=== PATIENT | female | born 1985 | race Caucasian/White ===

== ENCOUNTER 2017-03-06 21:26 | Emergency (ER) | payer OTHER ==
[~2017-03-06 21:26] MED LIST: HYDROCHLOROTHIA25 MG PO; LAMICTAL100 MG PO; LEVSIN/SL0.125 MG PO; LEXAPRO20 MG PO; ONDANSETRON ODT4 MG PO; PRILOSEC20 MG PO; VENTOLIN HFA IN
--- NOTE | 2017-03-06 23:49 | ED NURSING NOTES ---
Clinical Report - Nurses [facility] [address] [place] [address] 03/06/2017 21:27 [id number] Triage time 21:45 Aditya 04 2016. Acuity: LEVEL 3. Chief Complaint: ALLERGIC REACTION. Alert. CAYDEN COMA SCORE: Cayden Coma Scale: 15- eyes open spontaneously (4); best verbal response- oriented x 4 (5); best motor response- obeys commands (6). --22:11 Andrey Rivera R.N. 22:02 03/06/17. BP: 110/74. HR: 127. RR: 28. O2 saturation: 99%. Temp: 98 F. Pain level now: 0/10. --22:11 Andrey Rivera R.N. Weight: 124.9 kg measured. Height/Length: 65 inches Per Patient. BMI: 45.9. --22:05 Andrey Rivera R.N. Medications LamoTRIgine ER Oral. --22:08 Andrey Rivera R.N. Levothyroxine Sodium Oral 150 mcg, daily. --22:08 Andrey Rivera R.N. Mehtadone. --22:08 Andrey Rivera R.N. Ibuprofen Oral. --22:11 Andrey Rivera R.N. Sertraline HCl Oral 150 mg, daily. --22:24 Andrey Rivera R.N. Medication/allergy information source: the patient. --22:11 Andrey Rivera R.N. Allergies Ceclor. --22:09 Andrey Rivera R.N. Compazine. --22:09 Andrey Rivera R.N. Sulfa Antibiotics. --22:10 Andrey Rivera R.N. History Arrived by private vehicle. Historian: patient. Accompanied by family. Primary physician (Kayla). 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 This started just prior to arrival. She has had itching and difficulty breathing. Treatment COLLIERY CLERK: (Benadryl 25 mg x 2 and Epi pens x 2). PAST MEDICAL HX: Asthma. SOCIAL HX: Light tobacco smoker (cigarette)- less than 1/2 a pack per day. No alcohol use or drug use. No infectious disease exposure. ABUSE ASSESSMENT: No report of abuse. FALL RISK ASSESSMENT: Fall risk assessment completed. No fall risk identified. NUTRITIONAL RISK ASSESSMENT: The nutritional risk assessment revealed no deficiencies. FUNCTIONAL ASSESSMENT: Functional assessment: no impairments noted. LEARNING NEEDS ASSESSMENT: The learning needs assessment revealed no barriers. SKIN INTEGRITY ASSESSMENT: Skin integrity risk assessment completed. No skin integrity risk identified. --22:11 Andrey Rivera R.N. Interventions ID band on patient. To treatment room. --22:11 Andrey Rivera R.N. PHYSICAL ASSESSMENT Ambulatory to room. GENERAL / NEURO / PSYCH: Alert. Appears anxious. Oriented X 4. HEENT: Pupils equal, round and reactive to light. Mucous membranes are pink. RESPIRATORY: Decreased breath sounds in the right upper lung posteriorly; decreased breath sounds in the left upper lung posteriorly. CVS: Cardiac rhythm: sinus tachycardia. SKIN: Skin is intact, warm and dry. --22:12 Andrey Rivera R.N. NURSING PROGRESS NOTES Patient gowned. Reassurance given. Patient identifiers checked. Call light placed in reach. Side rails up x 2. Bed placed in lowest position. Brakes of bed on. Patient ready for evaluation- chart flagged and ED physician notified. --22:13 Andrey Rivera R.N. 21:39 03/06/2017 Zofran (Ondansetron HCl) IVP 4 mg given over 2 minute(s) via site #1. Allergies verified and confirmed 5 rights. IV patency established. IV site checked: no pain, redness, or swelling. IV flushed thoroughly pre- and post-medication administration. IVP given by RN. --22:23 Andrey Rivera R.N. 21:48 03/06/2017 Prednisone PO Tablets 40 mg given. Allergies verified and confirmed 5 rights. --22:13 Andrey Rivera R.N. 21:58 03/06/2017 Site #1 started via IV in the left antecubital space with an 20g angiocath, with aseptic technique and good blood return; one attempt. Blood drawn: rainbow set. Labeled in the presence of the patient and sent to the lab. Saline lock flushed with 10 mL saline. --22:23 Andrey Rivera R.N. 22:22 03/06/2017 Famotidine PO Tablets 20 mg given. Allergies verified and confirmed 5 rights. --22:22 Andrey Rivera R.N. 22:29 03/06/17. BP: 131/102. HR: 125. RR: 18. O2 saturation: 100%. Pain level now: 0/10. --22:30 Andrey Rivera R.N. 23:17 03/06/17. BP: 112/64. HR: 117. RR: 31. O2 saturation: 100%. --23:18 Yesica Roberson R.N. The patient is calm and resting quietly. Overall patient status is improved- she states feels better. RESPIRATORY: No respiratory distress. SKIN: Skin is warm and dry. Skin color within normal limits. --23:18 Yesica Roberson R.N. 23:50 03/06/2017 Site #1 removed upon discharge. Catheter intact. Bandaid applied. --01:55 Andrey Rivera R.N. DISPOSITION / DISCHARGE Departure time: 2355. --01:56 Andrey Rivera R.N. 23:53 03/06/17. BP: 127/64. HR: 113. RR: 20 (regular). O2 saturation: 99% on room air. Temp: 98.4 F (oral). Pain level now: 110. Additional comments: Itchiness. --01:59 Andrey Rivera R.N. 23:55. Condition at departure: improved. No learning barriers present. Discharge instructions provided and reviewed with the patient and parent. Reviewed medication(s) (prescription given to pt). Reviewed referral to family practice for followup (in about 2 days). Patient verbalized understanding. Written instructions provided in Bhutanese. The patient was discharged by the physician. She was discharged home and accompanied by parent. She left the Emergency Department ambulatory and via private vehicle. Parent driving. FALL RISK ASSESSMENT: Fall risk assessment completed. No fall risk identified. --02:03 Andrey Rivera R.N. Locked/Released at 03/07/2017 2:03 by Andrey Rivera R.N.
--- NOTE | 2017-03-06 23:49 | ED CLINICAL REPORT ---
Clinical Report - Physicians/Mid Levels [facility] [address] [place] [address] 03/06/2017 21:27 Patient: TRAV BE Time Seen: 21:39; initial patient contact. Arrived- By private vehicle. Historian- patient. HISTORY OF PRESENT ILLNESS Chief Complaint: ALLERGIC REACTION and ITCHING. THROAT SWELLING. The patient has had difficulty breathing, itching and swelling involving the face, lips, tongue and throat but not had trouble swallowing. No dizziness or fainting episodes. This started just prior to arrival and is still present. No cause has been identified (Idiopathic). No recent medication or insect bite. The patient self administered medication prior to arrival including Benadryl and epinephrine. Similar symptoms previously: Many times. Recent medical care: Not recently seen/assessed. REVIEW OF SYSTEMS The patient has had a sore throat. No chest pain or palpitations. All systems otherwise negative, except as recorded above. PAST HISTORY Idiopathic Angioedema Manjula Thyroiditis. Allergic Reaction. Vomiting. Diverticulitis. Ovarian Cyst. Abdominal Pain. Immunizations. Asthma. Depression. Hepatitis. ADDITIONAL SURGERIES: Appendectomy. Back Surgery. Cholecystectomy. Colonoscopy. Sinus Surgery. Tonsillectomy. SOCIAL HISTORY Current every day smoker. ADDITIONAL NOTES The nursing notes have been reviewed. PHYSICAL EXAM Vital Signs: 03/06/2017 22:02 BP: 110/74. HR: 127. RR: 28. O2 saturation: 99%. Temp: 98 F. Pain level now: 0/10. Have been reviewed. Blood pressure normal. Tachycardic. Tachypneic. Temperature normal. Oxygen saturation normal. Appearance: Alert. Oriented X3. Anxious. Head and Neck: Normal external inspection. Eyes: Pupils equal, round and reactive to light. ENT: Hoarse voice. Pharynx normal. CVS: Tachycardia. Heart sounds normal. Normal rhythm. Respiratory: Mild respiratory distress with hyperventilation. Breath sounds normal. No decreased air movement, prolonged expiration, accessory muscle use, wheezes or rales. No rhonchi. Skin: Skin warm and dry. Extremities: Extremities nontender. No edema of extremities. Skin: Normal skin color. No rash. No urticaria. Neuro: Oriented X 3. LABS, X-RAYS, AND EKG Laboratory Tests: CBC w Diff: (JACKIE: 03/06/2017 21:32) ( [facility] 03/06/2017 22:27) Final results Test Result Flag Units (Reference) WHITE BLOOD COUNT 17.3 H K/uL (4.5-11.5) RED BLOOD COUNT 4.35 M/uL (4.00-5.20) HEMOGLOBIN 12.6 gm/dL (12.0-16.0) HEMATOCRIT 38.1 % (36.0-46.0) MEAN CELL VOLUME 88 fL (80-100) MEAN CORPUSCULAR HGB 29 pg (26-34) MEAN CORPUSCULAR HGB CONC 33 g/dL (31-37) RED CELL DISTRIBUTION WIDTH 14.1 % (11.6-14.8) PLATELET COUNT 476 H K/uL (150-400) NEUTROPHIL % 44.3 L % (50-75) LYMPH % 44.9 H % (25-40) MONO % 6.5 % (3-14) EOSINOPHIL % 3.9 % (0-4) BASOPHIL % 0.4 % (0-2) CMP: (JACKIE: 03/06/2017 21:32) ( [facility] 03/06/2017 22:47) Final results Test Result Flag Units (Reference) GLUCOSE 120 H mg/dL (70-110) BUN 22 H mg/dL (7-18) CREATININE 1.1 mg/dL (0.6-1.3) Estimated GFR >60 mL/min Estimated GFR- >60 mL/min Note: Persistent reduction over 3 months in eGFR<60 mL/min/1.73 m2 defines CKD. Patients with eGFR values>=60 mL/min/1.73 m2 may also have CKD if evidence ofpersistent proteinuria. Additional information may be foundat www.kidney.org. SODIUM 144 mmol/L (136-145) POTASSIUM 3.3 L mmol/L (3.5-5.1) CHLORIDE 106 mmol/L (98-107) CARBON DIOXIDE 25 mmol/L (21-32) CALCIUM 9.3 mg/dL (8.5-10.1) TOTAL PROTEIN 9.1 H g/dL (6.4-8.2) ALBUMIN 3.8 g/dL (3.3-5.0) BILIRUBIN, TOTAL 0.3 mg/dL (0.0-1.0) ALKALINE PHOSPHATASE 107 U/L (46-116) AST (SGOT) 22 U/L (15-37) ALT (SGPT) 22 U/L (12-78) THYROID STIMULATING HORMONE 13.117 H uIU/mL (0.34-3.74) . PROGRESS AND PROCEDURES Course of Care: Pt feeling markedly better and has been stable the entire visit. Disposition: Discharged home in good and improved condition. Condition: good. CLINICAL IMPRESSION Angioedema secondary to unknown cause with facial swelling and laryngeal edema. INSTRUCTIONS Warnings: GENERAL WARNINGS: Return or contact your physician immediately if your condition worsens or changes unexpectedly, if not improving as expected, or if other problems arise. Specifically return if breathing difficulty returns. Your Current Medications: CONTINUE TAKING THE FOLLOWING MEDICATIONS: Ibuprofen Oral. LamoTRIgine ER Oral. Levothyroxine Sodium Oral : 150 mcg daily. Mehtadone*. Sertraline HCl Oral : 150 mg daily. Prescription Medications: Zantac 150 mg: take 1 orally every 12 hours. Dispense sixty (60). No refills. Substitution is permissible. Prednisone 20 mg: take 2 orally every day for 4 days. Dispense sufficient quantity. No refills. EpiPen Auto-Injector 0.3mg / unit: inject 2 unit doses as needed for allergic reaction. Dispense one (1) two-bharat. One refill. Substitution is permissible. Follow-up: Follow up with your doctor in about two days. Call for an appointment. Screening today revealed the patient's blood pressure to be in the normal range. (Electronically signed by Isaías Treviño Dr. 03/07/2017 0:41)
--- NOTE | 2017-03-06 23:49 | ED NURSING NOTES ---
Clinical Report - Nurses [facility] [address] [place] [address] 03/06/2017 21:27 [id number] TRI[facility] Triage time 21:45 Aditya 04 2016. Acuity: LEVEL 3. Chief Complaint: ALLERGIC REACTION. Alert. CAYDEN COMA SCORE: Cayden Coma Scale: 15- eyes open spontaneously (4); best verbal response- oriented x 4 (5); best motor response- obeys commands (6). --22:11 Andrey Rivera R.N. 22:02 03/06/17. BP: 110/74. HR: 127. RR: 28. O2 saturation: 99%. Temp: 98 F. Pain level now: 0/10. --22:11 Andrey Rivera R.N. Weight: 124.9 kg measured. Height/Length: 65 inches Per Patient. BMI: 45.9. --22:05 Andrey Rivera R.N. Medications LamoTRIgine ER Oral. --22:08 Andrey Rivera R.N. Levothyroxine Sodium Oral 150 mcg, daily. --22:08 Andrey Rivera R.N. Mehtadone. --22:08 Andrey Rivera R.N. Ibuprofen Oral. --22:11 Andrey Rivera R.N. Sertraline HCl Oral 150 mg, daily. --22:24 Andrey Rivera R.N. Medication/allergy information source: the patient. --22:11 Andrey Rivera R.N. Allergies Ceclor. --22:09 Andrey Rivera R.N. Compazine. --22:09 Andrey Rivera R.N. Sulfa Antibiotics. --22:10 Andrey Rivera R.N. History Arrived by private vehicle. Historian: patient. Accompanied by family. Primary physician (Kayla). 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 This started just prior to arrival. She has had itching and difficulty breathing. 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 PAST MEDICAL HX: Asthma. SOCIAL HX: Light tobacco smoker (cigarette)- less than 1/2 a pack per day. No alcohol use or drug use. No infectious disease exposure. ABUSE ASSESSMENT: No report of abuse. FALL RISK ASSESSMENT: Fall risk assessment completed. No fall risk identified. NUTRITIONAL RISK ASSESSMENT: The nutritional risk assessment revealed no deficiencies. FUNCTIONAL ASSESSMENT: Functional assessment: no impairments noted. LEARNING NEEDS ASSESSMENT: The learning needs assessment revealed no barriers. SKIN INTEGRITY ASSESSMENT: Skin integrity risk assessment completed. No skin integrity risk identified. --22:11 Andrey Rivera R.N. Interventions ID band on patient. To treatment room. --22:11 Andrey Rivera R.N. PHYSICAL ASSESSMENT Ambulatory to room. GENERAL / NEURO / PSYCH: Alert. Appears anxious. Oriented X 4. HEENT: Pupils equal, round and reactive to light. Mucous membranes are pink. RESPIRATORY: Decreased breath sounds in the right upper lung posteriorly; decreased breath sounds in the left upper lung posteriorly. CVS: Cardiac rhythm: sinus tachycardia. SKIN: Skin is intact, warm and dry. --22:12 Andrey Rivera R.N. NURSING PROGRESS NOTES Patient gowned. Reassurance given. Patient identifiers checked. Call light placed in reach. Side rails up x 2. Bed placed in lowest position. Brakes of bed on. Patient ready for evaluation- chart flagged and ED physician notified. --22:13 Andrey Rivera R.N. 21:39 03/06/2017 Zofran (Ondansetron HCl) IVP 4 mg given over 2 minute(s) via site #1. Allergies verified and confirmed 5 rights. IV patency established. IV site checked: no pain, redness, or swelling. IV flushed thoroughly pre- and post-medication administration. IVP given by RN. --22:23 Andrey Rivera R.N. 21:48 03/06/2017 Prednisone PO Tablets 40 mg given. Allergies verified and confirmed 5 rights. --22:13 Andrey Rivera R.N. 21:58 03/06/2017 Site #1 started via IV in the left antecubital space with an 20g angiocath, with aseptic technique and good blood return; one attempt. Blood drawn: rainbow set. Labeled in the presence of the patient and sent to the lab. Saline lock flushed with 10 mL saline. --22:23 Andrey Rivera R.N. 22:22 03/06/2017 Famotidine PO Tablets 20 mg given. Allergies verified and confirmed 5 rights. --22:22 Andrey Rivera R.N. 22:29 03/06/17. BP: 131/102. HR: 125. RR: 18. O2 saturation: 100%. Pain level now: 0/10. --22:30 Andrey Rivera R.N. 23:17 03/06/17. BP: 112/64. HR: 117. RR: 31. O2 saturation: 100%. --23:18 Yesica Roberson R.N. The patient is calm and resting quietly. Overall patient status is improved- she states feels better. RESPIRATORY: No respiratory distress. SKIN: Skin is warm and dry. Skin color within normal limits. --23:18 Yesica Roberson R.N. 23:50 03/06/2017 Site #1 removed upon discharge. Catheter intact. Bandaid applied. --01:55 Andrey Rivera R.N. DISPOSITION / DISCHARGE Departure time: 2355. --01:56 Andrey Rivera R.N. 23:53 03/06/17. BP: 127/64. HR: 113. RR: 20 (regular). O2 saturation: 99% on room air. Temp: 98.4 F (oral). Pain level now: 110. Additional comments: Itchiness. --01:59 Andrey Rivera R.N. 23:55. Condition at departure: improved. No learning barriers present. Discharge instructions provided and reviewed with the patient and parent. Reviewed medication(s) (prescription given to pt). Reviewed referral to family practice for followup (in about 2 days). Patient verbalized understanding. Written instructions provided in Bhutanese. The patient was discharged by the physician. She was discharged home and accompanied by parent. She left the Emergency Department ambulatory and via private vehicle. Parent driving. FALL RISK ASSESSMENT: Fall risk assessment completed. No fall risk identified. --02:03 Andrey Rivera R.N. Locked/Released at 03/07/2017 2:03 by Andrey Rivera R.N.
--- NOTE | 2017-03-06 23:49 | ED CLINICAL REPORT ---
Clinical Report - Physicians/Mid Levels [facility] [address] [place] [address] 03/06/2017 21:27 Patient: TRAV BE Time Seen: 21:39; initial patient contact. Arrived- By private vehicle. Historian- patient. HISTORY OF PRESENT ILLNESS Chief Complaint: ALLERGIC REACTION and ITCHING. THROAT SWELLING. The patient has had difficulty breathing, itching and swelling involving the face, lips, tongue and throat but not had trouble swallowing. No dizziness or fainting episodes. This started just prior to arrival and is still present. No cause has been identified (Idiopathic). No recent medication or insect bite. The patient self administered medication prior to arrival including Benadryl and epinephrine. Similar symptoms previously: Many times. Recent medical care: Not recently seen/assessed. REVIEW OF SYSTEMS The patient has had a sore throat. No chest pain or palpitations. All systems otherwise negative, except as recorded above. PAST HISTORY Idiopathic Angioedema Manjula Thyroiditis. Allergic Reaction. Vomiting. Diverticulitis. Ovarian Cyst. Abdominal Pain. Immunizations. Asthma. Depression. Hepatitis. ADDITIONAL SURGERIES: Appendectomy. Back Surgery. Cholecystectomy. Colonoscopy. Sinus Surgery. Tonsillectomy. SOCIAL HISTORY Current every day smoker. ADDITIONAL NOTES The nursing notes have been reviewed. PHYSICAL EXAM Vital Signs: 03/06/2017 22:02 BP: 110/74. HR: 127. RR: 28. O2 saturation: 99%. Temp: 98 F. Pain level now: 0/10. Have been reviewed. Blood pressure normal. Tachycardic. Tachypneic. Temperature normal. Oxygen saturation normal. Appearance: Alert. Oriented X3. Anxious. Head and Neck: Normal external inspection. Eyes: Pupils equal, round and reactive to light. ENT: Hoarse voice. Pharynx normal. CVS: Tachycardia. Heart sounds normal. Normal rhythm. Respiratory: Mild respiratory distress with hyperventilation. Breath sounds normal. No decreased air movement, prolonged expiration, accessory muscle use, wheezes or rales. No rhonchi. Skin: Skin warm and dry. Extremities: Extremities nontender. No edema of extremities. Skin: Normal skin color. No rash. No urticaria. Neuro: Oriented X 3. LABS, X-RAYS, AND EKG Laboratory Tests: CBC w Diff: (JACKIE: 03/06/2017 21:32) ( [facility] [place] 22:27) Final results Test Result Flag Units (Reference) WHITE BLOOD COUNT 17.3 H K/uL (4.5-11.5) RED BLOOD COUNT 4.35 M/uL (4.00-5.20) HEMOGLOBIN 12.6 gm/dL (12.0-16.0) HEMATOCRIT 38.1 % (36.0-46.0) MEAN CELL VOLUME 88 fL (80-100) MEAN CORPUSCULAR HGB 29 pg (26-34) MEAN CORPUSCULAR HGB CONC 33 g/dL (31-37) RED CELL DISTRIBUTION WIDTH 14.1 % (11.6-14.8) PLATELET COUNT 476 H K/uL (150-400) NEUTROPHIL % 44.3 L % (50-75) LYMPH % 44.9 H % (25-40) MONO % 6.5 % (3-14) EOSINOPHIL % 3.9 % (0-4) BASOPHIL % 0.4 % (0-2) CMP: (JACKIE: 03/06/2017 21:32) ( [facility] 03/06/2017 22:47) Final results Test Result Flag Units (Reference) GLUCOSE 120 H mg/dL (70-110) BUN 22 H mg/dL (7-18) CREATININE 1.1 mg/dL (0.6-1.3) Estimated GFR >60 mL/min Estimated GFR- >60 mL/min Note: Persistent reduction over 3 months in eGFR<60 mL/min/1.73 m2 defines CKD. Patients with eGFR values>=60 mL/min/1.73 m2 may also have CKD if evidence ofpersistent proteinuria. Additional information may be foundat www.kidney.org. SODIUM 144 mmol/L (136-145) POTASSIUM 3.3 L mmol/L (3.5-5.1) CHLORIDE 106 mmol/L (98-107) CARBON DIOXIDE 25 mmol/L (21-32) CALCIUM 9.3 mg/dL (8.5-10.1) TOTAL PROTEIN 9.1 H g/dL (6.4-8.2) ALBUMIN 3.8 g/dL (3.3-5.0) BILIRUBIN, TOTAL 0.3 mg/dL (0.0-1.0) ALKALINE PHOSPHATASE 107 U/L (46-116) AST (SGOT) 22 U/L (15-37) ALT (SGPT) 22 U/L (12-78) THYROID STIMULATING HORMONE 13.117 H uIU/mL (0.34-3.74) . PROGRESS AND PROCEDURES Course of Care: Pt feeling markedly better and has been stable the entire visit. Disposition: Discharged home in good and improved condition. Condition: good. CLINICAL IMPRESSION Angioedema secondary to unknown cause with facial swelling and laryngeal edema. INSTRUCTIONS Warnings: GENERAL WARNINGS: Return or contact your physician immediately if your condition worsens or changes unexpectedly, if not improving as expected, or if other problems arise. Specifically return if breathing difficulty returns. Your Current Medications: CONTINUE TAKING THE FOLLOWING MEDICATIONS: Ibuprofen Oral. LamoTRIgine ER Oral. Levothyroxine Sodium Oral : 150 mcg daily. Mehtadone*. Sertraline HCl Oral : 150 mg daily. Prescription Medications: Zantac 150 mg: take 1 orally every 12 hours. Dispense sixty (60). No refills. Substitution is permissible. Prednisone 20 mg: take 2 orally every day for 4 days. Dispense sufficient quantity. No refills. EpiPen Auto-Injector 0.3mg / unit: inject 2 unit doses as needed for allergic reaction. Dispense one (1) two-bharat. One refill. Substitution is permissible. Follow-up: Follow up with your doctor in about two days. Call for an appointment. Screening today revealed the patient's blood pressure to be in the normal range. (Electronically signed by Isaías Treviño Dr. 03/07/2017 0:41)
--- NOTE | 2017-03-06 23:50 | ED ORDER SUMMARY ---
..... Patient: TRAV BE OrderSheet [facility] VisitID: [id number] [address] [place] [address] 31y, F Registration Date/Time: 03/06/2017 ORDER SHEET Weight: 124.9 kg (measured) Allergies: Ceclor, Compazine, Sulfa Antibiotics GENERAL ORDERS: CBC w Diff Urgent (22:14 03/06/2017 Ivonne Dyer) (22:15 ALawrence ER Tech1) CMP Urgent (22:14 03/06/2017 Ivonne Dyer) (22:15 ALawrence ER Tech1) TSH Urgent (22:14 03/06/2017 Ivonne Dyer) (22:15 ALawrence ER Tech1) MEDICATION ORDERS: Prednisone PO 40 mg (NOW) (21:38 03/06/2017 Ivonne Dyer) (22:13 Olga R.N.) Famotidine PO 20 mg (NOW) (22:13 03/06/2017 Ivonne Dyer) (22:22 Olga R.N.) IV FLUIDS: Zofran IV 4 mg (NOW) (22:13 03/06/2017 Ivonne Dyer) (22:23 Olga R.N.) ORDER SHEET NOTES: [Electronically signed by Isaías Treviño Dr. (00:41 03/07/2017)] [Electronically signed by Andrey Rivera R.N. (02:03 03/07/2017)] [Electronically locked/signed by Andrey Rivera R.N. (02:03 03/07/2017)]
--- NOTE | 2017-03-06 23:50 | ED ORDER SUMMARY ---
..... Patient: TRAV BE OrderSheet [facility] VisitID: [id number] [address] [place] [address] 31y, F Registration Date/Time: 03/06/2017 ORDER SHEET Weight: 124.9 kg (measured) Allergies: Ceclor, Compazine, Sulfa Antibiotics GENERAL ORDERS: CBC w Diff Urgent (22:14 03/06/2017 Ivonne Dyer) (22:15 ALawrence ER Tech1) CMP Urgent (22:14 03/06/2017 Ivonne Dyer) (22:15 ALawrence ER Tech1) TSH Urgent (22:14 03/06/2017 Ivonne Dyer) (22:15 ALawrence ER Tech1) MEDICATION ORDERS: Prednisone PO 40 mg (NOW) (21:38 03/06/2017 Ivonne Dyer) (22:13 Olga R.N.) Famotidine PO 20 mg (NOW) (22:13 03/06/2017 Ivonne Dyer) (22:22 Olga R.N.) IV FLUIDS: Zofran IV 4 mg (NOW) (22:13 03/06/2017 Ivonne Dyer) (22:23 Olga R.N.) ORDER SHEET NOTES: [Electronically signed by Isaías Treviño Dr. (00:41 03/07/2017)] [Electronically signed by Andery Rivera R.N. (02:03 03/07/2017)] [Electronically locked/signed by Andrey Rivera R.N. (02:03 03/07/2017)]
--- NOTE | 2017-03-07 02:04 | ED MAR SUMMARY ---
..... Medication Administration Record [facility] [address] [place] [address] Patient: TRAV BE Visit ID: [id number] 31y, F Weight: 124.9 kg Height/Length: 65 in BMI: 45.9 ALLERGIES: Sulfa Antibiotics, Compazine, Ceclor Given 21:39 03/06/2017 Andrey Rivera RLitoN. Medication Administered: ZOFRAN [IVP] (ONDANSETRON HCL), Dose: 4 mg IVP over 2 minute(s), Site: #1. Medication Ordered: Zofran IV 4 mg (NOW). Given 21:48 03/06/2017 Andrey Rivera RLitoN. Medication Administered: PREDNISONE [PO], Dose: 40 mg Tablets PO. Medication Ordered: Prednisone PO 40 mg (NOW). Given 22:22 03/06/2017 Andrey Rivera R.N. Medication Administered: FAMOTIDINE [PO], Dose: 20 mg Tablets PO. Medication Ordered: Famotidine PO 20 mg (NOW).
--- NOTE | 2017-03-07 02:04 | ED MAR SUMMARY ---
..... Medication Administration Record [facility] [address] [place] [address] Patient: TRAV BE Visit ID: [id number] 31y, F Weight: 124.9 kg Height/Length: 65 in BMI: 45.9 ALLERGIES: Sulfa Antibiotics, Compazine, Ceclor Given 21:39 03/06/2017 Andrey Rivera RLitoN. Medication Administered: ZOFRAN [IVP] (ONDANSETRON HCL), Dose: 4 mg IVP over 2 minute(s), Site: #1. Medication Ordered: Zofran IV 4 mg (NOW). Given 21:48 03/06/2017 Andrey Rivera RLitoN. Medication Administered: PREDNISONE [PO], Dose: 40 mg Tablets PO. Medication Ordered: Prednisone PO 40 mg (NOW). Given 22:22 03/06/2017 Andrey Rivera R.N. Medication Administered: FAMOTIDINE [PO], Dose: 20 mg Tablets PO. Medication Ordered: Famotidine PO 20 mg (NOW).
--- NOTE | 2017-03-07 02:04 | ED MED RECONCILIATION SUMMARY ---
Patient: TRAV BE Medication Reconciliation Report [facility] VisitID: [id number] [address] [place] [address] 31y, F Registration Date/Time: 03/06/2017 Weight: 124.9 kg Height/Length: 65 in. BMI: 45.9 ALLERGIES: Ceclor, Compazine, Sulfa Antibiotics The patient's Home Medications are listed below: CONTINUE TAKING THE FOLLOWING MEDICATIONS: Ibuprofen Oral LamoTRIgine ER Oral Levothyroxine Sodium Oral 150 mcg, daily Mehtadone Sertraline HCl Oral 150 mg, daily The source(s) of the original Home Medication information: patient The following Medications were given to the patient in the Emergency Department: Prednisone [PO] PO 40 mg, administered: 03/06/2017 9:48:00 PM Famotidine [PO] PO 20 mg, administered: 03/06/2017 10:22:00 PM Zofran [IVP] IVP 4 mg, administered: 03/06/2017 9:39:00 PM The following Medications were prescribed to the patient: Zantac 150 mg: take 1 orally every 12 hours. Dispense sixty (60). No refills. Substitution is permissible. -- Isaías Treviño Dr. Prednisone 20 mg: take 2 orally every day for 4 days. Dispense sufficient quantity. No refills. -- Isaías Treviño Dr. EpiPen Auto-Injector 0.3mg / unit: inject 2 unit doses as needed for allergic reaction. Dispense one (1) two-bharat. One refill. Substitution is permissible. -- Isaías Treviño Dr.
--- NOTE | 2017-03-07 02:04 | ED DISCHARGE INSTRUCTIONS ---
Patient: TRAV BE General Instructions VisitID: [id number] [place] [address] 31y, F Registration Date/Time: 03/06/2017 Angioedema secondary to unknown cause with facial swelling and laryngeal edema. INSTRUCTIONS Warnings: GENERAL WARNINGS: Return or contact your physician immediately if your condition worsens or changes unexpectedly, if not improving as expected, or if other problems arise. Specifically return if breathing difficulty returns. Your Current Medications: CONTINUE TAKING THE FOLLOWING MEDICATIONS: Ibuprofen Oral. LamoTRIgine ER Oral. Levothyroxine Sodium Oral : 150 mcg daily. Mehtadone*. Sertraline HCl Oral : 150 mg daily. Prescription Medications: Zantac 150 mg: take 1 orally every 12 hours. Dispense sixty (60). No refills. Substitution is permissible. Prednisone 20 mg: take 2 orally every day for 4 days. Dispense sufficient quantity. No refills. EpiPen Auto-Injector 0.3mg / unit: inject 2 unit doses as needed for allergic reaction. Dispense one (1) two-bharat. One refill. Substitution is permissible. Follow-up: Follow up with your doctor in about two days. Call for an appointment. Screening today revealed the patient's blood pressure to be in the normal range. ADDITIONAL INFORMATION Angioedema Angioedema ([id number]) is a sudden appearance of swollen patches (edema) on the skin or mucous membranes. The swelling is painless and does not itch. It most often involves the face, lips, mouth, tongue, back of throat or vocal cords. It may also occur in other places such as the arms or legs. A rash may also appear during the first 4 days of this illness. The most common cause for this condition is a side-effect to a class of medicine calledACE inhibitor.This type of drug is used to treat high blood pressure. It includes captopril (Capoten), enalapril (Vasotec) and lisinopril (Prinivil, Zestril). Tell your doctor if you are taking any of these medicines. Other causes of angioedema include allergic reaction to something eaten, touched or inhaled. Angioedema may also be hereditary. In some cases, no cause can be found. Angioedema can lead to the swelling of the air passage in the mouth or throat. Severe swelling can block your breathing and cause . Your doctor believes that you are not at risk for this; however, be alert for early signs of increased swelling in the mouth or throat, or difficulty with swallowing or breathing. Angioedema may recur. It is therefore important to watch for the earliest signs of this condition (below). Return to the hospital promptly if swelling involves the face, mouth or throat areas. Home Care: Rest quietly today. No heavy exertion or excess physical activity. If you were told that your angioedema was from a medicine that you are taking, you must stop taking this medicine. Contact your doctor for a different one. In the future, advise medical staff that you are allergic to this medicine. If medicine was prescribed to treat angioedema (for example, steroids or antihistamines), take it as directed. Oral Benadryl (diphenhydramine) is an antihistamine available at drug and grocery stores. Unless another antihistamine was prescribed, Benadryl may be used to reduce swelling or itching. Use lower doses during the daytime and higher doses at bedtime since the drug may make you sleepy. [NOTE: Do not use Benadryl if you have glaucoma or if you are a man with trouble urinating due to an enlarged prostate.] Claritin (loratidine) is an antihistamine that causes less drowsiness and is a good alternative for daytime use. Follow Up with your doctor or as advised by our staff. Get Prompt Medical Attention if any of the following occur: Increase in swelling of lip, mouth, tongue or throat Trouble swallowing Trouble breathing Severe abdominal pains Ranitidine Hydrochloride Oral tablet What is this medicine? RANITIDINE (ra VICKI connelly) is a type of antihistamine that blocks the release of stomach acid. It is used to treat stomach or intestinal ulcers. It can relieve ulcer pain and discomfort, and the heartburn from acid reflux. How should I use this medicine? Take this medicine by mouth with a glass of water. Follow the directions on the prescription label. If you only take this medicine once a day, take it at bedtime. Take your medicine at regular intervals. Do not take your medicine more often than directed. Do not stop taking except on your doctor's advice. Talk to your keypunch operator regarding the use of this medicine in children. Special care may be needed. What side effects may I notice from receiving this medicine? Side effects that you should report to your doctor or health urgent care physician assistant as soon as possible: agitation, nervousness, depression, hallucinations allergic reactions like skin rash, itching or hives, swelling of the face, lips, or tongue breast enlargement in both males and females breathing problems redness, blistering, peeling or loosening of the skin, including inside the mouth unusual bleeding or bruising unusually weak or tired vomiting yellowing of the skin or eyes Side effects that usually do not require medical attention (report to your doctor or health urgent care physician assistant if they continue or are bothersome): constipation or diarrhea dizziness headache nausea What may interact with this medicine? atazanavir delavirdine gefitinib glipizide ketoconazole midazolam procainamide propantheline triazolam warfarin What if I miss a dose? If you miss a dose, take it as soon as you can. If it is almost time for your next dose, take only that dose. Do not take double or extra doses. Where should I keep my medicine? Keep out of the reach of children. Store at room temperature between 15 and 30 degrees C (59 and 86 degrees F). Protect from light and moisture. Keep container tightly closed. Throw away any unused medicine after the expiration date. What should I tell my health care provider before I take this medicine? They need to know if you have any of these conditions: kidney disease liver disease porphyria an unusual or allergic reaction to ranitidine, other medicines, foods, dyes, or preservatives or trying to get breast-feeding What should I watch for while using this medicine? Tell your doctor or health urgent care physician assistant if your condition does not start to get better or gets worse. You may need to take this medicine for several days as prescribed before your symptoms get better. Finish the full course of tablets prescribed, even if you feel better. Do not smoke cigarettes or drink alcohol. These increase irritation in your stomach and can lengthen the time it will take for ulcers to heal. Cigarettes and alcohol can also make acid reflux or heartburn worse. If you get black, tarry stools or vomit up what looks like coffee grounds, call your doctor or health urgent care physician assistant at once. You may have a bleeding ulcer. Prednisone Oral tablet What is this medicine? PREDNISONE (PRED ni sone) is a corticosteroid. It is commonly used to treat inflammation of the skin, joints, lungs, and other organs. Common conditions treated include asthma, allergies, and arthritis. It is also used for other conditions, such as blood disorders and diseases of the adrenal glands. How should I use this medicine? Take this medicine by mouth with a glass of water. Follow the directions on the prescription label. Take this medicine with food. If you are taking this medicine once a day, take it in the morning. Do not take more medicine than you are told to take. Do not suddenly stop taking your medicine because you may develop a severe reaction. Your doctor will tell you how much medicine to take. If your doctor wants you to stop the medicine, the dose may be slowly lowered over time to avoid any side effects. Talk to your keypunch operator regarding the use of this medicine in children. Special care may be needed. What side effects may I notice from receiving this medicine? Side effects that you should report to your doctor or health urgent care physician assistant as soon as possible: allergic reactions like skin rash, itching or hives, swelling of the face, lips, or tongue changes in emotions or moods changes in vision depressed mood eye pain fever or chills, cough, sore throat, pain or difficulty passing urine increased thirst swelling of ankles, feet Side effects that usually do not require medical attention (report to your doctor or health urgent care physician assistant if they continue or are bothersome): confusion, excitement, restlessness headache nausea, vomiting skin problems, acne, thin and shiny skin trouble sleeping weight gain What may interact with this medicine? Do not take this medicine with any of the following medications: metyrapone mifepristone This medicine may also interact with the following medications: aminoglutethimide amphotericin B aspirin and aspirin-like medicines barbiturates certain medicines for diabetes, like glipizide or glyburide cholestyramine cholinesterase inhibitors cyclosporine digoxin diuretics ephedrine female hormones, like estrogens and control pills isoniazid ketoconazole NSAIDS, medicines for pain and inflammation, like ibuprofen or naproxen phenytoin rifampin toxoids vaccines warfarin What if I miss a dose? If you miss a dose, take it as soon as you can. If it is almost time for your next dose, talk to your doctor or health urgent care physician assistant. You may need to miss a dose or take an extra dose. Do not take double or extra doses without advice. Where should I keep my medicine? Keep out of the reach of children. Store at room temperature between 15 and 30 degrees C (59 and 86 degrees F). Protect from light. Keep container tightly closed. Throw away any unused medicine after the expiration date. What should I tell my health care provider before I take this medicine? They need to know if you have any of these conditions: Vance's syndrome diabetes glaucoma heart disease high blood pressure infection (especially a virus infection such as chickenpox, cold sores, or herpes) kidney disease liver disease mental illness myasthenia gravis osteoporosis seizures stomach or intestine problems thyroid disease an unusual or allergic reaction to lactose, prednisone, other medicines, foods, dyes, or preservatives or trying to get breast-feeding What should I watch for while using this medicine? Visit your doctor or health urgent care physician assistant for regular checks on your progress. If you are taking this medicine over a prolonged period, carry an identification card with your name and address, the type and dose of your medicine, and your doctor's name and address. This medicine may increase your risk of getting an infection. Tell your doctor or health urgent care physician assistant if you are around anyone with measles or chickenpox, or if you develop sores or blisters that do not heal properly. If you are going to have surgery, tell your doctor or health urgent care physician assistant that you have taken this medicine within the last twelve months. Ask your doctor or health urgent care physician assistant about your diet. You may need to lower the amount of salt you eat. This medicine may affect blood sugar levels. If you have diabetes, check with your doctor or health urgent care physician assistant before you change your diet or the dose of your diabetic medicine. You have been given the following additional information: Angioedema Ranitidine Hydrochloride Oral tablet Prednisone Oral tablet (Electronically signed by Isaías Treviño Dr. 03/07/2017 0:41)
--- NOTE | 2017-03-07 02:04 | ED MED RECONCILIATION SUMMARY ---
Patient: TRAV BE Medication Reconciliation Report [facility] VisitID: [id number] [address] [place] [address] 31y, F Registration Date/Time: 03/06/2017 Weight: 124.9 kg Height/Length: 65 in. BMI: 45.9 ALLERGIES: Ceclor, Compazine, Sulfa Antibiotics The patient's Home Medications are listed below: CONTINUE TAKING THE FOLLOWING MEDICATIONS: Ibuprofen Oral LamoTRIgine ER Oral Levothyroxine Sodium Oral 150 mcg, daily Mehtadone Sertraline HCl Oral 150 mg, daily The source(s) of the original Home Medication information: patient The following Medications were given to the patient in the Emergency Department: Prednisone [PO] PO 40 mg, administered: 03/06/2017 9:48:00 PM Famotidine [PO] PO 20 mg, administered: 03/06/2017 10:22:00 PM Zofran [IVP] IVP 4 mg, administered: 03/06/2017 9:39:00 PM The following Medications were prescribed to the patient: Zantac 150 mg: take 1 orally every 12 hours. Dispense sixty (60). No refills. Substitution is permissible. -- Isaías Treviño Dr. Prednisone 20 mg: take 2 orally every day for 4 days. Dispense sufficient quantity. No refills. -- Isaías Treviño Dr. EpiPen Auto-Injector 0.3mg / unit: inject 2 unit doses as needed for allergic reaction. Dispense one (1) two-bhaart. One refill. Substitution is permissible. -- Isaías Treviño Dr.
--- NOTE | 2017-03-07 02:04 | ED DISCHARGE INSTRUCTIONS ---
Patient: TRAV BE General Instructions [facility] VisitID: [id number] [place] [address] 31y, F Registration Date/Time: 03/06/2017 Angioedema secondary to unknown cause with facial swelling and laryngeal edema. INSTRUCTIONS Warnings: GENERAL WARNINGS: Return or contact your physician immediately if your condition worsens or changes unexpectedly, if not improving as expected, or if other problems arise. Specifically return if breathing difficulty returns. Your Current Medications: CONTINUE TAKING THE FOLLOWING MEDICATIONS: Ibuprofen Oral. LamoTRIgine ER Oral. Levothyroxine Sodium Oral : 150 mcg daily. Mehtadone*. Sertraline HCl Oral : 150 mg daily. Prescription Medications: Zantac 150 mg: take 1 orally every 12 hours. Dispense sixty (60). No refills. Substitution is permissible. Prednisone 20 mg: take 2 orally every day for 4 days. Dispense sufficient quantity. No refills. EpiPen Auto-Injector 0.3mg / unit: inject 2 unit doses as needed for allergic reaction. Dispense one (1) two-bharat. One refill. Substitution is permissible. Follow-up: Follow up with your doctor in about two days. Call for an appointment. Screening today revealed the patient's blood pressure to be in the normal range. ADDITIONAL INFORMATION Angioedema Angioedema ([id number]) is a sudden appearance of swollen patches (edema) on the skin or mucous membranes. The swelling is painless and does not itch. It most often involves the face, lips, mouth, tongue, back of throat or vocal cords. It may also occur in other places such as the arms or legs. A rash may also appear during the first 4 days of this illness. The most common cause for this condition is a side-effect to a class of medicine calledACE inhibitor.This type of drug is used to treat high blood pressure. It includes captopril (Capoten), enalapril (Vasotec) and lisinopril (Prinivil, Zestril). Tell your doctor if you are taking any of these medicines. Other causes of angioedema include allergic reaction to something eaten, touched or inhaled. Angioedema may also be hereditary. In some cases, no cause can be found. Angioedema can lead to the swelling of the air passage in the mouth or throat. Severe swelling can block your breathing and cause . Your doctor believes that you are not at risk for this; however, be alert for early signs of increased swelling in the mouth or throat, or difficulty with swallowing or breathing. Angioedema may recur. It is therefore important to watch for the earliest signs of this condition (below). Return to the hospital promptly if swelling involves the face, mouth or throat areas. Home Care: Rest quietly today. No heavy exertion or excess physical activity. If you were told that your angioedema was from a medicine that you are taking, you must stop taking this medicine. Contact your doctor for a different one. In the future, advise medical staff that you are allergic to this medicine. If medicine was prescribed to treat angioedema (for example, steroids or antihistamines), take it as directed. Oral Benadryl (diphenhydramine) is an antihistamine available at drug and grocery stores. Unless another antihistamine was prescribed, Benadryl may be used to reduce swelling or itching. Use lower doses during the daytime and higher doses at bedtime since the drug may make you sleepy. [NOTE: Do not use Benadryl if you have glaucoma or if you are a man with trouble urinating due to an enlarged prostate.] Claritin (loratidine) is an antihistamine that causes less drowsiness and is a good alternative for daytime use. Follow Up with your doctor or as advised by our staff. Get Prompt Medical Attention if any of the following occur: Increase in swelling of lip, mouth, tongue or throat Trouble swallowing Trouble breathing Severe abdominal pains Ranitidine Hydrochloride Oral tablet What is this medicine? RANITIDINE (ra VICKI connelly) is a type of antihistamine that blocks the release of stomach acid. It is used to treat stomach or intestinal ulcers. It can relieve ulcer pain and discomfort, and the heartburn from acid reflux. How should I use this medicine? Take this medicine by mouth with a glass of water. Follow the directions on the prescription label. If you only take this medicine once a day, take it at bedtime. Take your medicine at regular intervals. Do not take your medicine more often than directed. Do not stop taking except on your doctor's advice. Talk to your electrician radio regarding the use of this medicine in children. Special care may be needed. What side effects may I notice from receiving this medicine? Side effects that you should report to your doctor or health caregiver services home as soon as possible: agitation, nervousness, depression, hallucinations allergic reactions like skin rash, itching or hives, swelling of the face, lips, or tongue breast enlargement in both males and females breathing problems redness, blistering, peeling or loosening of the skin, including inside the mouth unusual bleeding or bruising unusually weak or tired vomiting yellowing of the skin or eyes Side effects that usually do not require medical attention (report to your doctor or health caregiver services home if they continue or are bothersome): constipation or diarrhea dizziness headache nausea What may interact with this medicine? atazanavir delavirdine gefitinib glipizide ketoconazole midazolam procainamide propantheline triazolam warfarin What if I miss a dose? If you miss a dose, take it as soon as you can. If it is almost time for your next dose, take only that dose. Do not take double or extra doses. Where should I keep my medicine? Keep out of the reach of children. Store at room temperature between 15 and 30 degrees C (59 and 86 degrees F). Protect from light and moisture. Keep container tightly closed. Throw away any unused medicine after the expiration date. What should I tell my health care provider before I take this medicine? They need to know if you have any of these conditions: kidney disease liver disease porphyria an unusual or allergic reaction to ranitidine, other medicines, foods, dyes, or preservatives or trying to get breast-feeding What should I watch for while using this medicine? Tell your doctor or health caregiver services home if your condition does not start to get better or gets worse. You may need to take this medicine for several days as prescribed before your symptoms get better. Finish the full course of tablets prescribed, even if you feel better. Do not smoke cigarettes or drink alcohol. These increase irritation in your stomach and can lengthen the time it will take for ulcers to heal. Cigarettes and alcohol can also make acid reflux or heartburn worse. If you get black, tarry stools or vomit up what looks like coffee grounds, call your doctor or health caregiver services home at once. You may have a bleeding ulcer. Prednisone Oral tablet What is this medicine? PREDNISONE (PRED ni sone) is a corticosteroid. It is commonly used to treat inflammation of the skin, joints, lungs, and other organs. Common conditions treated include asthma, allergies, and arthritis. It is also used for other conditions, such as blood disorders and diseases of the adrenal glands. How should I use this medicine? Take this medicine by mouth with a glass of water. Follow the directions on the prescription label. Take this medicine with food. If you are taking this medicine once a day, take it in the morning. Do not take more medicine than you are told to take. Do not suddenly stop taking your medicine because you may develop a severe reaction. Your doctor will tell you how much medicine to take. If your doctor wants you to stop the medicine, the dose may be slowly lowered over time to avoid any side effects. Talk to your electrician radio regarding the use of this medicine in children. Special care may be needed. What side effects may I notice from receiving this medicine? Side effects that you should report to your doctor or health caregiver services home as soon as possible: allergic reactions like skin rash, itching or hives, swelling of the face, lips, or tongue changes in emotions or moods changes in vision depressed mood eye pain fever or chills, cough, sore throat, pain or difficulty passing urine increased thirst swelling of ankles, feet Side effects that usually do not require medical attention (report to your doctor or health caregiver services home if they continue or are bothersome): confusion, excitement, restlessness headache nausea, vomiting skin problems, acne, thin and shiny skin trouble sleeping weight gain What may interact with this medicine? Do not take this medicine with any of the following medications: metyrapone mifepristone This medicine may also interact with the following medications: aminoglutethimide amphotericin B aspirin and aspirin-like medicines barbiturates certain medicines for diabetes, like glipizide or glyburide cholestyramine cholinesterase inhibitors cyclosporine digoxin diuretics ephedrine female hormones, like estrogens and control pills isoniazid ketoconazole NSAIDS, medicines for pain and inflammation, like ibuprofen or naproxen phenytoin rifampin toxoids vaccines warfarin What if I miss a dose? If you miss a dose, take it as soon as you can. If it is almost time for your next dose, talk to your doctor or health caregiver services home. You may need to miss a dose or take an extra dose. Do not take double or extra doses without advice. Where should I keep my medicine? Keep out of the reach of children. Store at room temperature between 15 and 30 degrees C (59 and 86 degrees F). Protect from light. Keep container tightly closed. Throw away any unused medicine after the expiration date. What should I tell my health care provider before I take this medicine? They need to know if you have any of these conditions: Vance's syndrome diabetes glaucoma heart disease high blood pressure infection (especially a virus infection such as chickenpox, cold sores, or herpes) kidney disease liver disease mental illness myasthenia gravis osteoporosis seizures stomach or intestine problems thyroid disease an unusual or allergic reaction to lactose, prednisone, other medicines, foods, dyes, or preservatives or trying to get breast-feeding What should I watch for while using this medicine? Visit your doctor or health caregiver services home for regular checks on your progress. If you are taking this medicine over a prolonged period, carry an identification card with your name and address, the type and dose of your medicine, and your doctor's name and address. This medicine may increase your risk of getting an infection. Tell your doctor or health caregiver services home if you are around anyone with measles or chickenpox, or if you develop sores or blisters that do not heal properly. If you are going to have surgery, tell your doctor or health caregiver services home that you have taken this medicine within the last twelve months. Ask your doctor or health caregiver services home about your diet. You may need to lower the amount of salt you eat. This medicine may affect blood sugar levels. If you have diabetes, check with your doctor or health caregiver services home before you change your diet or the dose of your diabetic medicine. You have been given the following additional information: Angioedema Ranitidine Hydrochloride Oral tablet Prednisone Oral tablet (Electronically signed by Isaías Treviño Dr. 03/07/2017 0:41)
== END 2017-03-06 23:55 | disposition home or self-care (01) ==
LOC: ED SRH 21:26
DX: T78.3XXA Angioneurotic edema, initial encounter (principal); X58.XXXA Exposure to other specified factors, initial encounter; F17.200 Nicotine dependence, unspecified, uncomplicated
CPT/HCPCS: 90100; 93140; 95059